=== PATIENT | male | born 2005 | race Hispanic/Latino ===

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

== ENCOUNTER 2024-12-05 17:44 | Emergency (ER) | payer BC, SELFPAY ==
[2024-12-05] MEDS ORDERED: IBUPROFEN 400 MG TAB ONE (20:22)
[2024-12-05] MEDS ORDERED: TDAP (DIPHTH,PERTUSS(ACELL),TET VAC) 0.5 ML VIAL IMVAC ONE (20:22)
[2024-12-05] MEDS ORDERED: AMOX/K CLAV 875 MG TAB ONE (20:22)
--- NOTE | 2024-12-05 20:22 | ER ---
Nurse's Notes [facility] Name: Paul Ibrahim Age: 19 yrs Sex: Male : 2005 Arrival Date: 12/05/2024 Time: 17:44 Bed IW1 Private MD: Diagnosis: Bitten by dog, initial encounter;Open wound of thigh-left Presentation: 12/05 18:16 Chief complaint: Patient states: Dog bite L leg on Monday, stray in [place]. Started to ll1 have nausea and feeling hot last night. Site is red, swollen, tender. Coronavirus screen: Client denies travel out of the [place] in the last 14 days. At this time, the client does not indicate any symptoms associated with coronavirus-19. Ebola Screen: Patient denies travel to an Ebola-affected area in the 21 days before illness onset. Initial Sepsis Screen: Does the patient meet any 2 criteria? No. Patient's initial sepsis screen is negative. Does the patient have a suspected source of infection? No. Patient's initial sepsis screen is negative. Risk Assessment: Do you want to hurt yourself or someone else? Patient reports no desire to harm self or others. Onset of symptoms was December 02, 2024. 18:16 Method Of Arrival: Ambulatory ll1 18:16 Acuity: OLIVIER 3 ll1 Triage Assessment: 18:16 General: Appears uncomfortable, Behavior is calm, cooperative, appropriate for age. ll1 Pain: Complains of pain in left leg Quality of pain is described as aching. GI: Reports nausea. Derm: Reports dog bite above L knee. 20:30 Bite description: bite sustained to left leg by a dog, animal information: bm8 vaccination(s) is unknown. Historical: - Allergies: 18:16 No Known Allergies; ll1 - Home Meds: 18:16 None [Active]; ll1 - PMHx: 18:16 None; ll1 - PSHx: 18:16 None; ll1 - Immunization history:: Adult Immunizations up to date. - Infectious Disease History:: Denies. - Social history:: Smoking status: Patient reports the use of cigarette tobacco products, smokes one-half pack cigarettes per day. Screenin:04 [facility] ED Fall Risk Assessment (Adult) History of falling in the last 3 months, bm8 including since admission No falls in past 3 months (0 pts) Confusion or Disorientation No (0 pts) Intoxicated or Sedated No (0 pts) Impaired Gait No (0 pts) Mobility Assist Device Used No (0 pt) Altered Elimination No (0 pt) Score/Fall Risk Level 0 - 2 = Low Risk Oriented to surroundings, Maintained a safe environment, Educated pt \T\ family on fall prevention, incl call for assistance when getting out of bed, Assessed \T\ reinforced patient's understanding of fall precautions, Hourly rounding (assess needs \T\ fall precautionary measures) done, Used ambulatory aids as needed (educated on \T\ assisted with), Used gait belt as appropriate. Abuse screen: Denies threats or abuse. Nutritional screening: No deficits noted. Tuberculosis screening: No symptoms or risk factors identified. Assessment: 20:04 General: Appears in no apparent distress. comfortable, Behavior is calm, cooperative, bm8 appropriate for age. Pain: Complains of pain in left quadriceps Pain currently is 5 out of 10 on a pain scale. Neuro: No deficits noted. Level of Consciousness is awake, alert, obeys commands, Oriented to person, place, time, situation, Appropriate for age. Cardiovascular: No deficits noted. Capillary refill < 3 seconds in bilateral fingers. Respiratory: No deficits noted. GI: No deficits noted. : No deficits noted. EENT: No deficits noted. Derm: Skin superficial scratches to left thigh, appears to be healing well with no signs of infection. tender to touch. 20:30 Derm: Skin is normal. bm8 Vital Signs: 18:16 BP 138 / 79; Pulse 65; Resp 17; Temp 98.1; Pulse Ox 100% on R/A; Weight 72.57 kg; ll1 Height 5 ft. 8 in. ; Pain 5/10; 20:04 BP 127 / 66; Pulse 60; Resp 17; Temp 97.8; Pulse Ox 100% ; Pain 5/10; bm8 18:16 Body Mass Index 24.33 (72.57 kg, 172.72 cm) ll1 18:16 Pain Scale: Adult ll1 20:04 Pain Scale: Adult bm8 Terra Coma Score: 20:04 Eye Response: spontaneous(4). Motor Response: obeys commands(6). Verbal Response: bm8 oriented(5). Total: 15. ED Course: 18:06 Patient arrived in ED. al6 18:18 Triage completed. ll1 18:18 Arm band placed on. ll1 18:42 Ephraim Sanchez PA is PHCP. cp 18:42 Ephraim Snowden MD is Attending Physician. cp 20:04 Patient has correct armband on for positive identification. Client placed on continuous bm8 cardiac and pulse oximetry monitoring. NIBP monitoring applied. Pulse ox on. NIBP on. Verbal reassurance given. 20:04 No provider procedures requiring assistance completed. Patient did not have IV access bm8 during this emergency room visit. 20:29 Cameron Vee, RN is Primary Nurse. bm8 20:30 Provided Education on: post er care. bm8 Administered Medications: 20:29 Drug: Boostrix Tdap IM 0.5 ml IM once; as a single dose Route: IM; Site: right deltoid; bm8 20:29 Follow up: Response: Medication Administered at Departure bm8 20:29 Drug: Amoxicillin-Clavulanate PO 875 mg PO once Route: PO; bm8 20:29 Follow up: Response: Medication Administered at Departure bm8 20:29 Drug: Ibuprofen PO 800 mg PO once Route: PO; bm8 20:29 Follow up: Response: Medication Administered at Departure bm8 Medication: 20:04 VIS not applicable for this client. bm8 Outcome: 20:22 Discharge ordered by . cp 20:30 Discharged to home ambulatory, bm8 20:30 Condition: stable 20:30 Discharge instructions given to patient, Instructed on discharge instructions, follow up and referral plans. medication usage, Demonstrated understanding of instructions, follow-up care, medications, Prescriptions given X 2, 20:30 Patient left the ED. bm8 Signatures: Ephraim Sanchez PA PA cp Zenon Caal, RN RN ll1 Cameron Vee, RN RN bm8 Virgen Klein al6 Corrections: (The following items were deleted from the chart) 18:54 18:16 Chief complaint: Patient states: Dog bite L leg on Monday, stray in [place]. ll1 Started to have nausea and feeling hot last night. Site is res, swollen, tender ll1
--- NOTE | 2024-12-05 20:22 | EDPHYS ---
Physician Documentation [facility] Name: Paul Ibrahim Age: 19 yrs Sex: Male : 2005 Arrival Date: 12/05/2024 Time: 17:44 Bed IW1 Private MD: ED Physician Ephraim Snowden HPI: 12/05 20:10 This 19 yrs old Male presents to ER via Ambulatory with complaints of Dog Bite.cp 20:10 The patient was bitten on the left upper leg. Onset: The symptoms/episode cp began/occurred 3 day(s) ago. Animal information: Patient/Caregiver unable to provide information related to the animal. The animal is unknown and not captured. Secondary to the bite the patient reports multiple lacerations, that are superficial. Historical: - Allergies: 18:16 No Known Allergies; ll1 - Home Meds: 18:16 None [Active]; ll1 - PMHx: 18:16 None; ll1 - PSHx: 18:16 None; ll1 - Immunization history:: Adult Immunizations up to date. - Infectious Disease History:: Denies. - Social history:: Smoking status: Patient reports the use of cigarette tobacco products, smokes one-half pack cigarettes per day. ROS: 20:15 Constitutional: Negative for body aches, chills, fever, poor PO intake, cp 20:15 Skin: Positive for laceration(s), of the left upper leg, 20:15 Neuro: Negative for numbness, weakness, 20:15 All other systems are negative, Exam: 20:20 Constitutional: The patient appears in no acute distress, alert, awake, non-toxic, well cp developed, well nourished, 20:20 Head/Face: Normocephalic, atraumatic. cp 20:20 Chest/axilla: Inspection: normal, 20:20 Cardiovascular: Rate: normal, 20:20 Respiratory: the patient does not display signs of respiratory distress, Respirations: normal, no use of accessory muscles, no retractions, Breath sounds: are clear throughout, no decreased breath sounds, 20:20 Abdomen/GI: Inspection: abdomen appears normal, 20:20 Skin: injury, laceration(s), of the left upper leg, that can be described as irregular, without bleeding, superficial, mild swelling, mild erythema, 20:20 Neuro: Orientation: to person, place \T\ time. Mentation: is normal, Gait: is steady, Vital Signs: 18:16 BP 138 / 79; Pulse 65; Resp 17; Temp 98.1; Pulse Ox 100% on R/A; Weight 72.57 kg; ll1 Height 5 ft. 8 in. ; Pain 5/10; 20:04 BP 127 / 66; Pulse 60; Resp 17; Temp 97.8; Pulse Ox 100% ; Pain 5/10; bm8 18:16 Body Mass Index 24.33 (72.57 kg, 172.72 cm) ll1 18:16 Pain Scale: Adult ll1 20:04 Pain Scale: Adult bm8 Terra Coma Score: 20:04 Eye Response: spontaneous(4). Motor Response: obeys commands(6). Verbal Response: bm8 oriented(5). Total: 15. MDM: 18:43 Medical Screening Exam initiated cp 20:20 Differential diagnosis: superficial laceration, cellulitis, abscess. 20:22 Data reviewed: vital signs, nurses notes, and as a result, I will discharge patient. 20:22 I considered the following discharge prescriptions or medication management in the cp emergency department Medications were administered in the Emergency Department. See MAR. 20:22 Counseling: I had a detailed discussion with the patient and/or guardian regarding the cp historical points, exam findings, and any diagnostic results supporting the discharge/admit diagnosis, to return to the emergency department if symptoms worsen or persist or if there are any questions or concerns that arise at home. Administered Medications: 20:29 Drug: Boostrix Tdap IM 0.5 ml IM once; as a single dose Route: IM; Site: right deltoid; bm8 20:29 Follow up: Response: Medication Administered at Departure bm8 20:29 Drug: Amoxicillin-Clavulanate PO 875 mg PO once Route: PO; bm8 20:29 Follow up: Response: Medication Administered at Departure bm8 20:29 Drug: Ibuprofen PO 800 mg PO once Route: PO; bm8 20:29 Follow up: Response: Medication Administered at Departure bm8 Disposition: 12/06 08:38 Chart complete. cp Disposition Summary: 12/05/24 20:22 Discharge Ordered Notes: Location: Home cp Problem: new cp Symptoms: have improved cp Condition: Stable cp Diagnosis - Bitten by dog, initial encounter cp - Open wound of thigh - left cp Followup: cp - With: Private Physician - When: 2 - 3 days - Reason: Worsening of condition Discharge Instructions: - Discharge Summary Sheet cp - Nonsutured Laceration Care cp - Animal Bite, Adult cp Forms: - Medication Reconciliation Form cp - Antibiotic Education cp - Prescription Opioid Use cp - Patient Portal Instructions cp - Leadership Thank You Letter cp Prescriptions: - mupirocin 2 % Topical ointment - apply 1 application TOPICAL route 2-3 times daily; 30 gram tube; Refills: 0, cp Product Selection Permitted - Augmentin 875-125 mg Oral Tablet - take 1 tablet ORAL route every 12 hours for 10 days; 20 tablet; Refills: 0, cp Product Selection Permitted Addendum: 12/11/2024 07:24 Co-signature as Attending Physician, Ephraim Snowden MD I agree with the assessment and c pierre plan of care. Signatures: Ephraim Snowden MD MD cha Page, Corey, PA PA Zenon Estrada RN RN ll1 Cameron Vee RN RN bm8 Corrections: (The following items were deleted from the chart) 12/06 08:35 08:33 Constitutional: Negative for body aches, chills, fever, poor PO intake, cp cp 08:35 08:33 Skin: Positive for laceration(s), of the left upper leg, cp cp 08:35 08:33 Neuro: Negative for numbness, weakness, cp cp 08:35 08:33 All other systems are negative, cp cp
[2024-12-06 03:15] VITALS: BP 127/66; TEMP 97.8; O2SAT 100
== END 2024-12-05 20:30 | disposition home or self-care (01) ==
LOC: ER 17:44
DX: S71.102A Unspecified open wound, left thigh, initial encounter (principal); W54.0XXA Bitten by dog, initial encounter; F17.210 Nicotine dependence, cigarettes, uncomplicated
CPT/HCPCS: 96372; 99284